=== PATIENT | female | born 1970 | race Caucasian/White ===

== ENCOUNTER → 2016-12-02 | Outpatient (CLI) | payer BC | LOC: MC.RAD 08:57 | DX: Z12.31 Encounter for screening mammogram for malignant neoplasm of breast (principal) ==

== ENCOUNTER → 2019-04-24 | Outpatient (CLI) | payer BC | LOC: MC.RAD 13:33 | DX: R92.2 Inconclusive mammogram (principal) ==

== ENCOUNTER → 2019-04-26 | Outpatient (CLI) | payer BC | LOC: MC.RAD 10:46 | DX: N60.01 Solitary cyst of right breast (principal) ==

== ENCOUNTER → 2020-12-19 | Outpatient (CLI) | payer BC | LOC: MC.RAD 11:00 | DX: N60.01 Solitary cyst of right breast (principal) ==

== ENCOUNTER → 2022-02-12 | Outpatient (CLI) | payer BC | LOC: MC.RAD 08:09 | DX: Z12.31 Encounter for screening mammogram for malignant neoplasm of breast (principal) ==

== ENCOUNTER → 2023-04-07 | Outpatient (CLI) | payer BC | LOC: CANSCHCLI → MC.RAD 08:15 | DX: Z12.31 Encounter for screening mammogram for malignant neoplasm of breast (principal) ==

== ENCOUNTER → 2024-04-09 | Outpatient (CLI) | payer BC | LOC: MC.RAD 13:09 | DX: Z12.31 Encounter for screening mammogram for malignant neoplasm of breast (principal) ==